=== PATIENT | female | born 1945 | race Caucasian/White ===

== ENCOUNTER → 2019-01-24 05:40 | Day surgery (SDC) | payer MEDICARE ==
[~2019-01-24] VITALS: Ht 152.4 cm; Wt 74.8 kg
--- NOTE | ~2019-01-24 | OP ---
PATIENT NAME: NÉSTOR HURST MEDICAL RECORD: [id number] :47 LOCATION:[facility] ADMISSION DATE: SURGEON: MANUELA MOREIRA DPM DATE OF OPERATION: 01/24/2019 PREOPERATIVE DIAGNOSIS: Hammertoe, right second digit. POSTOPERATIVE DIAGNOSES: Hammertoe, right second digit. PROCEDURE: PIPJ fusion, right second digit. ANESTHESIA: General with local infiltrate utilizing 5 cc of 1:1 mix of lidocaine and Marcaine plain around the second digit of the right foot. HEMOSTASIS: Right ankle tourniquet at 250 mmHg. PREOPERATIVE DETAILS: The patient was taken to the OR, placed on the operating table in a supine position. This was followed by induction of general anesthesia endotracheal and infiltration of local anesthetic. The right extremity was then prepped and draped in usual aseptic technique followed by exsanguination and inflation of tourniquet. A 15-blade was used to create 2 semi-elliptical incisions over the dorsal aspect of the PIPJ in a transverse fashion. The skin wedge was removed. The 15 blade was used to make an incision through the extensor longus tendon in a transverse fashion. The PIPJ was then delivered. A sagittal saw was used to resect both the head of the proximal phalanx and the base of the middle phalanx. A drill hole was made in each. The bone graft was placed in the proximal phalanx first and the distal fragment was placed on top of the bone graft and impacted giving excellent coaptation of the fusion sites. Excellent stability was noted. Wound was flushed. The extensor longus was repaired with 4-0 Rapide and the skin was closed with 4-0 Rapide in a simple interrupted technique followed by Dermabond. Adaptic, 4 x 4 and Conform were used to dress the wound followed by Coban. Tourniquet was deflated. POSTOPERATIVE DETAILS: The patient tolerated the procedure well and left the OR with vital signs stable and vascular status at preoperative levels. The patient was transported to recovery per anesthesia in stable condition. TRANSINT:[id number] Voice Confirmation ID: [id number] DOCUMENT ID: [id number] MANUELA MOREIRA DPM CC: [id number] DICTATION DATE: 01/24/19 0948 DIGITAL MEDIA PLANNER: 01/24/19 1051 [facility] [address] [place] [address]
[~2019-01-24 05:40] MED LIST: PROPRANOLOL HCL20 MG PO; SYNTHROID100 MCG PO
[2019-01-24 06:17] LABS: HEMATOCRIT 42.4 % (36.0-48.0); HEMOGLOBIN 14.6 g/dL (12-16); MCH 30.9 pg (26.0-34.0); MCHC 34.4 g/dL (31.0-37.0); MCV 89.8 fL (80.0-100.0); MEAN PLATELET VOLUME 9.7 fL (7.4-10.4); RBC 4.72 10x6/uL (4.00-5.40); RDW 12.9 % (11.5-14.5); WBC 6.5 10x3/uL (4.8-10.8)
[2019-01-24 07:03] VITALS: BP 149/73; Ht 152.4 cm; Wt 74.8 kg
== END | disposition home or self-care (01) ==
LOC: D.OPS 05:40 → D.PAN 09:55 → D.OPS 10:45
PROVIDERS: Anesthesiology; ATTEND Podiatrist
DX: M20.41 Other hammer toe(s) (acquired), right foot (principal); Z01.812 Encounter for preprocedural laboratory examination